=== PATIENT | male | born 1975 | race Two or more races ===

== ENCOUNTER 2017-05-22 20:32 | Emergency (ER) | payer SELFPAY ==
[2017-05-22 20:41] VITALS: BMI 24.4
--- NOTE | 2017-05-22 21:02 | DR.GENAD ---
HPI - PCP Primary Care Physician: NFD - Complaint/Symptoms Chief Complaint:: SPIDER BITE - Nurses notes reviewed Nurses Notes Review: Yes - Source History Provided: Patient - Mode of Arrival Mode of Arrival: Ambulatory - Timing Onset of Chief Complaint: 05/22/17 Came on: Suddenly - Duration Duration: Constant How lon Duration: Hours - Location Location: right neck - Severity Severity: Mild - Modifying Factors Worsens:: nothing - Associated Signs and Symptoms Associated Signs and Symptoms: pain at site PMH - PMH Past Medical History: No Past Surgical History: No - Family History History of Family Medical Conditions: No - Social History Does patient currently use any type of tobacco product: No Have you used tobacco products in the last 12 months: No Type of Tobacco Use: None Does any household member use tobacco: No Alcohol Use: Occasionally Do you use any recreational Drugs:: No Lives With: Family Lives Where: Home - infectious screening In the last 2 months have you had wt loss of >10#?: NO Have you had fever, night sweats or hemotysis?: No Have you traveled outside the country in the last 6 months?: No Isolation: Standard ROS - Review of Systems Constitutional: No Symptoms Reported Eyes: No Symptoms Reported ENTM: No Symptoms Reported Respiratoy: No Symptoms Reported Cardiovascular: No Symptoms Reported Gastrointestinal/Abdominal: No Symptoms Reported Genitourinary: No Symptoms Reported Neurological: No Symptoms Reported Musculoskeletal: No Symptoms Reported Integumentary: Lesions (tiny 1mm bite right neck, no selling, no color change) Hematologic/Lymphatic: No Symptoms Reported Endocrine: No Symptoms Reported Psychiatric: No Symptoms Reported PE - Vital Signs Vitals: Temperature 98.7 F Pulse Rate 80 Respiratory Rate 17 Blood Pressure 157/96 O2 Sat by Pulse Oximetry 77 - General Limitations: No Limitations General Appearance: Alert, In No Apparent Distress - Head Head Exam: Normal Inspection - Eyes Eye exam: Normal Appearance, EOMI - ENT ENT Exam: Normal Exam External Ear Exam: Normal External Inspection Mouth Exam: Normal Inspection Throat Exam: Normal Inspection - Neck Neck Exam: Normal Inspection, Full ROM, Trachea Midline, Tenderness (mild at bite site) - Respiratory Respiratory Exam: negative: Accessory Muscle Use, Respiratory Distress - Cardiovascular Cardiovascular Exam: Regular Rate - Neurologic Neurological Exam: Alert, Oriented X3, CN II-XII Intact - Psychiatric Psychiatric Exam: Normal Mood - Skin Skin Exam: Intact, Normal Color - Diagnosis Discharge Problem: Spider bite Qualifiers: Encounter type: initial encounter Injury intent: accidental or unintentional Qualified Code(s): T63.301A - Toxic effect of unspecified spider venom, accidental (unintentional), initial encounter - Discharge Plan Condition: Stable Prescriptions: Diphenhydramine HCl [BENADRYL 25 MG TAB/CAP *] 25 mg PO Q8H PRN #12 tab PRN Reason: Allergy/Itching - Follow ups/Referrals Follow ups/Referrals: NFD,None [Primary Care Provider] - 3 days - Instructions
[2017-05-22] MEDS ORDERED: BENADRYL CAP/TAB 25 MG PO ONE ×2 (21:04→21:07)
[2017-05-22 21:35] VITALS: BP 133/82
== END 2017-05-22 21:35 | disposition home or self-care (01) ==
LOC: ER 20:44
DX: T63.301A Toxic effect of unspecified spider venom, accidental (unintentional), initial encounter (principal)
CPT/HCPCS: 99282

== ENCOUNTER → 2017-12-03 | Outpatient (CLI) | payer SELFPAY ==
--- NOTE | 2017-12-04 06:24 | RAD ---
HISTORY: Thoracic back pain Study: T spine AP, lateral, swimmer's Comparison: None Findings: The alignment is normal. The vertebral bodies are of average height. The disc spaces are preserved. T he pedicles are intact. The paraspinous soft tissues are normal. IMPRESSION: No significant abnormality identified Reported By:
== END ==
LOC: RAD 15:02
PROVIDERS: ATTEND Nurse Practitioner Family
DX: M54.6 Pain in thoracic spine (principal)
CPT/HCPCS: 72072

== ENCOUNTER → 2018-01-03 | Outpatient (CLI) | payer SELFPAY ==
[2018-01-03 11:30] LABS: BASOPHILS # (AUTO) 0.1 X10^3/uL (0.0-0.1); BASOPHILS % (AUTO) 1.6 % (0.2-1.0); EOSINOPHILS # (AUTO) 0.2 x10^3/uL (0.0-0.2); EOSINOPHILS % (AUTO) 2.6 % (0.9-2.9); HEMATOCRIT 40.7 % (42.0-54.0); HEMOGLOBIN 14.4 g/dL (13.5-18.0); LYMPHOCYTES # (AUTO) 1.1 X10^3/uL (1.3-2.9); LYMPHOCYTES % (AUTO) 17.6 % (21.0-51.0); MEAN CORPUSCULAR HEMOGLOBIN 29.7 pg (27.0-34.0); MEAN CORPUSCULAR HGB CONC 35.3 g/dL (33.0-35.0); MEAN CORPUSCULAR VOLUME 84.3 fL (80.0-100.0); MEAN PLATELET VOLUME 7.6 fL (7.4-11.0); MONOCYTES # (AUTO) 0.4 x10^3/uL (0.3-0.8); MONOCYTES % (AUTO) 6.9 % (0.0-13.0); NEUTROPHILS # (AUTO) 4.6 x10^3/uL (2.2-4.8); NEUTROPHILS % (AUTO) 71.3 % (42.0-75.0); PLATELET COUNT 328 X10^3/uL (150.0-450.0); RED BLOOD COUNT 4.83 X10^6/uL (4.7-6.0); RED CELL DISTRIBUTION WIDTH 12.5 % (11.6-16.5); WHITE BLOOD COUNT 6.5 X10^3/uL (3.6-10.0)
--- NOTE | 2018-01-03 15:09 | US ---
HISTORY: Difficulty urinating, burning sensation upon urinating Study: Renal ultrasound Comparison: None Technique: Multiple sonographic images of the kidneys were obtained. The region of the urinary bladd er was evaluated as well. Findings: The right kidney measures 9.7 x 5.4 x 5.4 cm. The right renal cortical thickness measures 1.8 cm. No sonographic evidence of abnormal renal mass or hydronephrosis is identified. The left kidney measures 11.4 x 6.1 x 5.9 cm. The left renal cortical thickness measures 1.8 cm. No s onographic evidence of abnormal renal mass or hydronephrosis is identified. The urinary bladder is not well distended which limits evaluation. A hypoechoic structure seen along the inferior margin of the urinary bladder may reflect the prostate however a bladder diverticulum ca nnot entirely be excluded. Follow-up exam with a more distended urinary bladder may be helpful in fur ther characterizing these findings. IMPRESSION: 1. Unremarkable renal ultrasound. See above discussion. Reported By:
== END ==
LOC: RAD 11:09
PROVIDERS: ATTEND Nurse Practitioner Family
DX: R39.198 Other difficulties with micturition (principal); R31.29 Other microscopic hematuria; R30.0 Dysuria; R10.33 Periumbilical pain; N39.0 Urinary tract infection, site not specified
CPT/HCPCS: 36415; 76770; 84153; 85025

== ENCOUNTER 2018-02-01 22:06 | Emergency (ER) | payer SELFPAY ==
[2018-02-01 22:11] VITALS: BP 128/83; BMI 29.1
[2018-02-01] MEDS ORDERED: ADRENALINE CHL INJ ONE (22:27)
[2018-02-01] MEDS ORDERED: ADRENALINE CHL INJ IM ONE (22:27)
[2018-02-01] MEDS ORDERED: SOLU-Medrol 125 MG VIAL IVP ONE (22:43)
--- NOTE | 2018-02-01 22:46 | DR.GENAD ---
HPI - PCP Primary Care Physician: NFD - Complaint/Symptoms Chief Complaint:: I HAVE BEEN TAKING BACTRIM, RX FILLED ON [id number], THIS IS THE SECOND ROUND OF THIS ANTIBIOTICS. I HAVE BEEN ITCHING, I FEEL LIKE MY THROAT IS CLOSING UP , MY LIPS SWELL ALL AFTER TAKING THIS MEDS." - Source History Provided: Patient - Mode of Arrival Mode of Arrival: Ambulatory - Timing Onset of Chief Complaint: 02/01/18 PMH - PMH Past Medical History: No Past Surgical History: No - Family History History of Family Medical Conditions: No - Social History Type of Tobacco Use: None Does any household member use tobacco: No Alcohol Use: None Do you use any recreational Drugs:: No Lives Where: Home - infectious screening Have you traveled outside the country in the last 6 months?: No Isolation: Standard ROS - Review of Systems Eyes: No Symptoms Reported ENTM: No Symptoms Reported Respiratoy: No Symptoms Reported Cardiovascular: No Symptoms Reported Gastrointestinal/Abdominal: No Symptoms Reported Genitourinary: No Symptoms Reported Neurological: No Symptoms Reported Musculoskeletal: No Symptoms Reported Integumentary: Change in Color. negative: Itching Hematologic/Lymphatic: No Symptoms Reported Endocrine: No Symptoms Reported Psychiatric: No Symptoms Reported All Other Systems: Reviewed and Negative PE - Vital Signs Vitals: Temperature 98.1 F Pulse Rate 91 Respiratory Rate 18 Blood Pressure [Left Arm] 133/82 Blood Pressure 128/83 O2 Sat by Pulse Oximetry 97 - General Limitations: No Limitations General Appearance: Alert, In No Apparent Distress - Head Head Exam: Normal Inspection, Atraumatic - Eyes Eye exam: Normal Appearance, PERRL, EOMI - ENT ENT Exam: Normal Exam, Other (lips swollen) External Ear Exam: Normal External Inspection TM/Canal Exam: Bilateral Normal Nose Exam: Normal Nose Exam Mouth Exam: Normal Inspection Throat Exam: Normal Inspection - Neck Neck Exam: Normal Inspection, Full ROM - Chest Chest Inspection: Normal Inspection, Symmetric Chest Wall Rise - Respiratory Respiratory Exam: Normal Lung Sounds Bilat Respiratory Exam: Bilateral Clear to Auscultation - Cardiovascular Cardiovascular Exam: Regular Rate, Normal Rhythm - Abdominal Exam Abdominal Exam: Normal Inspection, Normal Bowel Sounds Abdominal Tenderness: negative: RUQ, RLQ, LUQ, LLQ, Epigastrium, Suprapubic, Diffuse, Mild, Moderate, Severe, Other - Extremities Extremities Exam: Normal Inspection, Full ROM - Back Back Exam: Normal Inspection, Full ROM - Neurologic Neurological Exam: Alert, Oriented X3, CN II-XII Intact - Psychiatric Psychiatric Exam: Normal Affect, Normal Mood - Skin Skin Exam: Warm, Dry, Intact (lips minimally swollen) Course - Treatment Treatment: Solu Medrol, benadrly, epinephrine - Reevaluation 1st: Improved - Diagnosis Discharge Problem: History of allergic drug reaction, Sulfa sensitivity - Discharge Plan Condition: Stable - Follow ups/Referrals Follow ups/Referrals: NFD,None [Primary Care Provider] - 3 days - Instructions
[2018-02-01] MEDS ORDERED: PEPCID TAB 20 MG PO SCH (23:00)
[2018-02-01] MEDS ORDERED: SOLU-Medrol 125 MG VIAL ONE (23:01)
[2018-02-01] MEDS ORDERED: PEPCID TAB 20 MG ONE (23:01)
== END 2018-02-02 00:14 | disposition home or self-care (01) ==
LOC: ER 22:19
DX: Z88.1 Allergy status to other antibiotic agents (principal); Z88.2 Allergy status to sulfonamides
CPT/HCPCS: 96372; 99282; J0170; J2930